=== PATIENT | female | born 1990 | race African-American/Black ===

== ENCOUNTER 2016-12-27 16:24 | Emergency (ER) | payer SELFPAY ==
[2016-12-27 17:00] LABS: #Lymphocytes 0.6 thou/uL (1.20-3.40); #Monocytes 0.2 thou/uL (0.11-0.59); #Neutrophils 10.4 thou/uL (1.40-6.50); %Lymphocytes 5.1 % (21.0-51.0); %Monocytes 1.5 % (0.0-10.0); Hematocrit 27.9 % (36.0-47.0); Mean Platelet Volume 7.3 fL (7.4-10.4); Red Blood Cell (RBC) Count 3.62 mill/uL (4.20-5.40); White Blood Cell (WBC) Count 11.1 thou/uL (4.8-10.8)
[2016-12-27] MEDS ORDERED: Ondansetron HCl/PF 4 MG/2 ML Vial ONE (17:12)
[2016-12-27 17:25] LABS: ALT (SGPT) 7 U/L (8-55); AST (SGOT) 18 U/L (5-34); Alkaline Phosphatase 60 U/L (40-150); Anion Gap 19 mmol/L (10-20); BUN (Urea Nitrogen) 7 mg/dL (7.0-18.7); Bilirubin, Total 0.5 mg/dL (0.2-1.2); Calc. Creatinine Clearance 0 mL/min (70-130); Calcium 10.1 mg/dL (7.8-10.44); Carbon Dioxide 17 mmol/L (22-29); Chloride 104 mmol/L (98-107); Estimated GFR-MDRD Greater than 90; Globulin 4.2 g/dL (2.4-3.5); Lipase 8 U/L (8-78); Protein, Total 9.3 g/dL (6.0-8.3)
[2016-12-27] MEDS ORDERED: Mag-Al 1200 mg/1200 mg/30 ML UDCUP ONE (18:05)
[2016-12-27] MEDS ORDERED: Lidocaine Viscous Sol 2% 15 ml UD Cup ONE (18:05)
== END 2016-12-27 19:40 | disposition home or self-care (01) ==
LOC: ERS 16:24
DX: K52.9 Noninfective gastroenteritis and colitis, unspecified (principal); F41.9 Anxiety disorder, unspecified; F31.9 Bipolar disorder, unspecified; F17.210 Nicotine dependence, cigarettes, uncomplicated
CPT/HCPCS: 80053; 83690; 84702; 85025; 96361; 96374; 99406; J2405

== ENCOUNTER 2019-03-07 16:54 | Observation (INO) | payer SELFPAY ==
[2019-03-07] MEDS ORDERED: Guaifenesin DM 100-10/5 ML UDCUP PO PRN (19:17)
[2019-03-07] MEDS ORDERED: Ondansetron ODT 4 MG TAB PO PRN (19:17)
[2019-03-07] MEDS ORDERED: Ondansetron PF 4 MG/2 ML Vial IVP PRN (19:17)
[2019-03-07] MEDS ORDERED: Acetaminophen 650 MG Suppository PR PRN (19:17)
[2019-03-07] MEDS ORDERED: Senokot S 8.6-50 MG TAB PO PRN (19:17)
[2019-03-07 19:51] VITALS: BMI 18.3
[2019-03-07 20:03] LABS: Hemoglobin 6.1 g/dL (12.0-16.0)
--- NOTE | 2019-03-07 20:23 | HP ---
PRIMARY CARE PHYSICIAN: Monica Moore. CHIEF COMPLAINT: Headache and weakness. HISTORY OF PRESENT ILLNESS: This is a 28-year-old female with a history of heavy periods since she was a teenager, who has been told she had some anemia in the past in the emergency room, but never had it worked up. She reports this last 2 to 3 months. She has had increasing weakness and shortness of breath with standing up and trying to walk around. She denies any chest pain or other symptoms. She does have monthly periods, and usually, she has bleed for about 7 days. During heavy parts of her period, she will change a large pad every hour. The patient also reports that for some time now, she has been craving ice. She has never been , does not take any control pills. The patient presented to the [facility]. There, she was noted to have a hemoglobin of 4.4. She had iron studies drawn, and then was typed and crossed and had 1 unit of blood hung, and then she was transferred over here for admission. She also reported some headache when she first got into the emergency room. This behind her right eye. It is a sharp pain and comes for some time and will go away, but that is resolved currently without any specific medications. PAST MEDICAL HISTORY: None. PAST SURGICAL HISTORY: None. PAST PSYCHIATRIC HISTORY: Positive for anxiety, depression, and bipolar disorder. SOCIAL HISTORY: No alcohol use. She has a history of abusing marijuana and smoking cigarettes daily, one pack daily. She is single. Her mother is present in the room. PAST FAMILY HISTORY: Mother and her sister both have significant menorrhagia problems and her mom had to have emergency hysterectomy due to bleeding. ALLERGIES: Hydrocodone MEDICATIONS: None REVIEW OF SYSTEMS: CONSTITUTIONAL: No fevers. No chills. EYES: No double vision or blurred vision. ENT: No congestion drainage or sore throat. CARDIOVASCULAR: No chest pain. No palpitations or racing heart. PULMONARY: See HPI. She does not currently have a cough. GASTROINTESTINAL: No abdominal pain. She does get nausea and vomiting with her. This is a normal thing. No nausea or vomiting currently. No diarrhea or constipation. No blood in her stool. GENITOURINARY: No dysuria or hematuria. She is just now getting off her period. Still bleeding just a little bit, but not significantly right now. MUSCULOSKELETAL: No muscle aches or joint pain. SKIN: No rashes or lesions she has noted. NEUROLOGIC: No current numbness, tingling, or focal weakness. She does get tingling and numbness in her hands and feet though on occasion. PHYSICAL EXAMINATION: VITAL SIGNS: Blood pressure 124/69, pulse 85, it was originally 107 on original presentation to the [facility], respirations 20, temperature 98.8, O2 saturation 100% on room air. GENERAL: This is a well-developed, well-nourished female, in no acute distress, but with some mild pallor to her skin. HEENT: Pupils are equal, round, and reactive to light. Conjunctivae are pale. Oropharynx with clear without lesions, erythema, or exudate. NECK: Supple. No lymphadenopathy. No thyroid nodules or enlargement. HEART: Regular rate and rhythm. No murmurs, rubs, or gallops. LUNGS: Clear to auscultation bilaterally. No wheezes, crackles, or rhonchi. ABDOMEN: Soft, nontender to palpation. Normoactive bowel sounds. No hepatosplenomegaly or other masses. EXTREMITIES: No clubbing, cyanosis, or edema. SKIN: No rashes or other lesions noted. She does have extensive tattoos across her body. NEUROLOGIC: Intact strength and sensation in all extremities. No facial droop. PSYCHIATRIC: Alert and oriented x3. Normal mood and affect. LABORATORY DATA: Labs reviewed from the [facility] show a white blood cell count of 4.5, hemoglobin of 4.1, hematocrit 14.7, MCV of 73, MCHC of 28, RDW of 18.5, platelet count was increased at 483. Her complete metabolic panel was grossly within normal limits. No elevations of her liver function tests. Troponin was negative. Glucose was normal. Blood type was A positive. Urinalysis did show some leukocyte esterase and lmp-fudcobsn-tr-count red blood cells, though she is on her period. 2+ bacteria, lots of squamous epithelial cells, so it does not look like a clean-catch. Chest x-ray, I did review the report from the [facility]. It shows no evidence of acute cardiopulmonary disease. ASSESSMENT: 1. Severe likely iron deficiency anemia. Iron studies were drawn in my request in [facility] prior to transfusion. We will obtain the results of these studies. The patient has had received 1 unit of packed red blood cells. We will check a hemoglobin and hematocrit now. She will likely need transfusion of another couple of units, so we will type and cross 2 units for her right now. She does not have any significant active bleeding, just a small amount at the end of her period, and her vital signs are stable, so I decided that she will not need to stay longer in the hospital. We likely can transfuse her overnight and possibly discharge her tomorrow if she is hemodynamically stable. 2. Menorrhagia. The patient has a significant history of menorrhagia. Has never been worked up. Dr. Washburn was called from [facility]. He said he would consult when she got here. I will go ahead and write for the consult here as well. The patient may benefit from starting oral contraceptive pills. 3. Gastrointestinal prophylaxis. The patient is on Pepcid twice a day. 4. Deep venous thrombosis prophylaxis. Put patient on sequential compression devices while she is in bed and encourage ambulation. No anticoagulants for right now though due to her severe anemia and history of menorrhagia. CODE STATUS: The patient is a full code. Should she be incapacitated, her mother would be her medical decision maker. Her name is Mariluz Ozuna. Job ID: [id number] MTDD
[2019-03-07] MEDS: Famotidine 20 MG TAB PO SCH (21:22)
[2019-03-07] MEDS: Acetaminophen 325 MG TAB PO PRN (21:22)
[2019-03-08] MEDS ORDERED: Ketorolac Tromethamine 30 MG/ML VIAL IVP SCH (02:00)
[2019-03-08 05:17] LABS: #Eosinphils 0.2 thou/uL (0.0-0.7); #Lymphocytes 1.8 thou/uL (1.20-3.40); #Monocytes 0.7 thou/uL (0.11-0.59); #Neutrophils 4.2 thou/uL (1.40-6.50); %Basophils 0.6 % (0.0-1.0); %Eosinophils 3.5 % (0.0-10.0); %Lymphocytes 25.4 % (21.0-51.0); %Monocytes 9.4 % (0.0-10.0); %Neutrophils 61.1 % (42.0-75.0); Hemoglobin 8.4 g/dL (12.0-16.0); Mean Corpuscular HGB CONC 32.1 g/dL (32.0-36.0); Mean Corpuscular Hemoglobin 26.6 pg (27.0-31.0); Mean Corpuscular Volume 82.9 fL (78.0-98.0); Platelet Count 349 thou/uL (130-400); Red Blood Cell (RBC) Count 3.17 mill/uL (4.20-5.40); White Blood Cell (WBC) Count 6.9 thou/uL (4.8-10.8)
[2019-03-08 05:34] LABS: Anion Gap 9 mmol/L (10-20); BUN (Urea Nitrogen) 10 mg/dL (7.0-18.7); Calc. Creatinine Clearance 83 mL/min (70-130); Calcium 8.1 mg/dL (7.8-10.44); Carbon Dioxide 23 mmol/L (22-29); Chloride 109 mmol/L (98-107); Estimated GFR-MDRD Greater than 90; Glucose 116 mg/dL (70-105); Potassium 4.1 mmol/L (3.5-5.1); Sodium 137 mmol/L (136-145)
--- NOTE | 2019-03-08 07:22 | CON ---
DATE OF CONSULTATION: 03/08/2019 CONSULTING PHYSICIAN: Chan Washburn MD from [facility]. REASON FOR CONSULTATION: Menorrhagia with anemia, requiring transfusion. HISTORY OF PRESENT ILLNESS: Ms. Fuentes is a 28-year-old 0 with a long history of menorrhagia. She reports changing pads, tampons q.1 hour for 3 to 5 days per month. She states her periods have always been heavy. At this time, she presented to the emergency room with near syncopal episode, was found to have a hematocrit of 19%. She was seen in [place] and despite the real absence of need for inpatient gynecologic care, was transferred to [facility] in [place], because of the presence of OB-RADIOLOGIC TECHNOLOGY TEACHER. She was admitted by Medicine and received 3 units of PRBCs. Post transfusion, hematocrit is 26%. She states symptomatically, she feels much better. OUTLET MANAGER HISTORY: Denies history of STDs, abnormal Pap smear. Of note, the patient has a strong family history of menorrhagia. The patient is not on any contraception at this time. PAST MEDICAL HISTORY: Denies. PAST SURGICAL HISTORY: Denies. ALLERGIES: DENIES. MEDICATIONS: None. SOCIAL HISTORY: Denies tobacco, alcohol, or IV drug use. FAMILY HISTORY: Noncontributory. REVIEW OF SYSTEMS: Noncontributory. PHYSICAL EXAMINATION: GENERAL: Black female, extensive body, resting comfortably in the bed, pleasant, no acute distress. VITAL SIGNS: Temperature 98.0, pulse 73, respirations 17, and blood pressure 107/66. HEENT: Within normal limits. LUNGS: Clear to auscultation bilaterally. HEART: Regular rate and rhythm. ABDOMEN: Soft, nontender. No rebound or guarding. RADIOLOGIC TECHNOLOGY TEACHER: Vulva without lesions. Moderate menses. Pelvic exam deferred. EXTREMITIES: No clubbing, cyanosis, or edema. LABORATORY: Post transfusion, hematocrit was noted, platelet count within normal limits. [facility] iron studies revealed iron of 9; lower limits of normal 35; TIBC 480; upper limits of normal, 445. Iron saturation 1.9%; ferritin 4, lower limits of normal 6. Of note, the patient had mild microcytic indices on her initial CBC. RADIOLOGIC TECHNOLOGY TEACHER ultrasound ordered on 03/07, pending at this time. Study has not been performed. IMPRESSION: Secondary versus mild primary menorrhagia leading to anemia. This is the patient's first blood transfusion for menorrhagia and anemia. The patient is 0. PLAN: 1. A Provera 10 mg b.i.d. during heavy menses. The patient will need prescription for this upon discharge from hospital. 2. Consideration if the patient has insurance for Lysteda 1300 mg p.o. t.i.d. for 5 days with heavy menses. The patient is currently uninsured and financial impact as I stated would likely be excessive. 3. Followup ultrasound results. If indicated by ultrasound, we would recommend endometrial biopsy in the outpatient setting. 4. IV Venofer 500 mg x2 during hospitalization for iron deficiency. 5. Consideration for long-term outpatient therapy. As the patient does not desire at this time, therapy with progesterone releasing IUD versus Depo-Provera would likely be most satisfactory in the [facility]. 6. Consideration in the normal volemic non-post transfusion state of further evaluation for possible von Willebrand's or other coagulation deficits as the patient gives history that is mildly suggestive for possible primary menorrhagia that has not been fully evaluated. 7. OB hospitalist will follow up on the ultrasound results in hospital. The patient will follow up at [facility] [place] as an outpatient. Again, recommend discharge with Provera 10 mg to take b.i.d. on heavy days for 5 days q.cycle. Job ID: [id number]
--- NOTE | 2019-03-08 08:33 | ULT ---
Ultrasound of the pelvis: 03/08/2019 COMPARISON:None available HISTORY:Anemia, menorrhagia TECHNIQUE: Multiplanar grayscale sonographic imaging of the pelvis obtained with transabdominal imagi ng. The patient refused endovaginal examination.. The left ovary is assessed with Doppler interrogation including color flow and spectral analysis. FINDINGS: The uterus [id number] x 6.6 x 7.0 cm. The region of the endometrium is markedly irregular, with heterogeneous echotexture involving the melly tral aspect of the uterus and region of the endometrium. The endometrium cannot be accurately measured on this exam. It may be significantly thickened and/or distorted. Heterogeneity of the centr al aspect of the uterus may signify submucosal fibroids. This is difficult to fully assess without endovaginal imaging. The right ovary could not be visualized on this examination. The left ovary measures3.8 x 2.2 x 2.2 c m and demonstrates normal blood flow without evidence for mass. No significant free fluid is seen within the pelvis IMPRESSION:Distorted and/or thickened heterogeneous endometrial on with probable uterine fibroid dise ase, not optimally assessed without endovaginal imaging. Endovaginal imaging may be helpful for further assessment. Alternatively, pelvic MRI could be beneficial in better evaluating the uterine ar chitecture and potential underlying fibroid disease.
[2019-03-08] MEDS ORDERED: Iron Sucrose Complex 500 MG in Sodium Chloride 0.9% 250 ML 250 ML IVPB SCH (09:00)
[2019-03-08] MEDS ORDERED: medroxyPROGESTERone Acetate 5 MG TAB PO SCH (09:00)
[2019-03-08] MEDS: Famotidine 20 MG TAB PO SCH (09:11)
[2019-03-08 11:35] VITALS: BP 131/75; TEMP 98.2
[2019-03-08] MEDS: Acetaminophen 325 MG TAB PO PRN (12:58)
--- NOTE | 2019-03-09 02:12 | DIS ---
DATE OF ADMISSION: 03/07/2019 DATE OF DISCHARGE: 03/08/2019 DISCHARGE DIAGNOSES: 1. Severe symptomatic anemia, secondary to #2. 2. Menorrhagia, multifactorial. 3. Acute blood loss anemia status post 2 units of packed red blood cells. 4. Severe iron deficiency anemia. CONSULTATIONS: Dr. Chan Washburn with REGIONAL ACCOUNT EXECUTIVE Service. PERTINENT LABORATORY AND X-RAY FINDINGS: Basic metabolic profile within normal limits. CBC showed a hemoglobin ranging between 6.1 to 8.4, MCV 83. IMAGING: Pelvic ultrasound dated 03/08/2019 showed thickened and distorted heterogeneous endometrium with probable uterine fibroid disease. HOSPITAL COURSE: The patient was observed after initially presenting with headache, generalized weakness, and symptomatic severe anemia. The patient was initially evaluated at the [facility] with initial hemoglobin of 4.4. However, patient received 1 unit of packed red blood cells and was transferred to [facility] for [facility] evaluation. The patient received an additional 2 units of packed red blood cells during her hospital course as well as IV iron infusion. Iron studies from [facility] showed an iron level of 9 with TIBC of 480, iron saturation of 1.9%, and a ferritin level of 4. HOSPITAL COURSE: The patient was evaluated by the REGIONAL ACCOUNT EXECUTIVE service, undergoing pelvic ultrasound showing probable uterine fibroid disease with recommendations to initiate Provera 10 mg b.i.d. with the heaviest menstrual days of each cycle. The patient may need additional evaluation for bleeding disorder, as well as outpatient YARD COUPLER services. The patient tolerated 3 units of packed red blood cells as well as IV iron infusion as well as oral intake without complication. I have examined the patient at the time of discharge and discussed followup instructions. The patient verbalized understanding and agreement ready for discharge on 03/08/2019. DISCHARGE MEDICATIONS: 1. Ferrous sulfate 325 mg p.o. b.i.d. 2. Provera 10 mg p.o. b.i.d. during heaviest menses days of each cycle. FOLLOWUP: The patient may follow up with [facility] [place] for evaluation and to call their office for appointment time and date. CONDITION ON DISCHARGE: Stable. ACTIVITY: Ad-effie. DIET: Regular. CODE STATUS: Full. DISPOSITION: To home, 03/08/2019. Job ID: [id number]
== END 2019-03-08 13:54 | disposition home or self-care (01) ==
LOC: 2SW 18:30
PROVIDERS: ADMIT Emergency Medicine; ATTEND Emergency Medicine
DX: D62 Acute posthemorrhagic anemia (principal); N92.0 Excessive and frequent menstruation with regular cycle; F41.9 Anxiety disorder, unspecified; F31.9 Bipolar disorder, unspecified; Z87.891 Personal history of nicotine dependence; Z88.5 Allergy status to narcotic agent
CPT/HCPCS: 36415; 36430; 76856; 80048; 85014; 85018; 85025; 86850; 86900; 86901; 93976; 96365; 96366; 96375; G0378; J1756; J1885; J7050; P9016

== ENCOUNTER 2019-04-04 12:09 | Emergency (ER) | payer SELFPAY ==
[2019-04-04 13:19] LABS: #Basophils 0.1 thou/uL (0.0-0.2); #Eosinphils 0.2 thou/uL (0.0-0.7); #Lymphocytes 1.5 thou/uL (1.20-3.40); #Monocytes 0.6 thou/uL (0.11-0.59); #Neutrophils 6.7 thou/uL (1.40-6.50); %Basophils 0.8 % (0.0-1.0); %Eosinophils 2.1 % (0.0-10.0); %Lymphocytes 16.7 % (21.0-51.0); %Monocytes 6.9 % (0.0-10.0); %Neutrophils 73.5 % (42.0-75.0); Hemoglobin 9.1 g/dL (12.0-16.0); Mean Corpuscular HGB CONC 32.8 g/dL (32.0-36.0); Mean Corpuscular Hemoglobin 29.8 pg (27.0-31.0); Mean Corpuscular Volume 90.7 fL (78.0-98.0); Mean Platelet Volume 7.8 fL (7.4-10.4); Platelet Count 265 thou/uL (130-400); RBC Distribution Width 20.1 % (11.5-14.5); Red Blood Cell (RBC) Count 3.05 mill/uL (4.20-5.40); White Blood Cell (WBC) Count 9.1 thou/uL (4.8-10.8)
[2019-04-04 13:40] LABS: BHCG - Serum Negative (NEGATIVE); Pregs Control Background? CLEAR/WHITE (CLR/WHITE); Pregs Control Bar Appear? YES (CONTROL BAR)
[2019-04-04 13:42] LABS: Anisocytosis SLIGHT = 6-15 cells (100X) (0-5/hpf); MDiff Complete? YES; Ovalocytes SLIGHT = 2-5 cells (100X) (0-1/hpf); Platelet Morphology Comment Appears Adequate; Polychromasia SLIGHT = 2-3 cells (100X) (0-2/hpf); Target Cells SLIGHT = 2-5 cells (100X) (0-1/hpf)
[2019-04-04 13:45] LABS: ALT (SGPT) 7 U/L (8-55); AST (SGOT) 12 U/L (5-34); Albumin 3.9 g/dL (3.5-5.0); Alkaline Phosphatase 42 U/L (40-110); Anion Gap 11 mmol/L (10-20); BUN (Urea Nitrogen) 8 mg/dL (7.0-18.7); Bilirubin, Total 0.5 mg/dL (0.2-1.2); Calc. Creatinine Clearance 0 mL/min (70-130); Calcium 8.4 mg/dL (7.8-10.44); Carbon Dioxide 23 mmol/L (22-29); Chloride 106 mmol/L (98-107); Estimated GFR-MDRD Greater than 90; Globulin 2.5 g/dL (2.4-3.5); Glucose 88 mg/dL (70-105); Potassium 3.6 mmol/L (3.5-5.1); Protein, Total 6.4 g/dL (6.0-8.3); Sodium 136 mmol/L (136-145)
--- NOTE | 2019-04-04 13:47 | ULT ---
Exam: Transabdominal pelvic ultrasound HISTORY: Vaginal bleeding COMPARISON: 03/08/2019 TECHNIQUE: Transabdominal imaging of the pelvis is performed. Ovaries are interrogated with grayscale , color flow, Doppler imaging and spectral waveform analysis. Patient refused endovaginal imaging. FINDINGS: Uterus is identified, measuring 11.8 x 6.8 x 6.0 cm. There are at least 2 solid echotexture masses in the myometrium, measuring 4.1 x 2.6 x 3.0 cm and 6.1 x 3.6 x 3.8 cm. Suboptimal evaluation the endometrium. Right ovary has a normal echotexture measuring 1.9 x 1.8 x 3.3 cm. Left ovary has a normal echotexture measuring 3.2 x 2.2 x 2.5 cm Trace amount of fluid in the cul-de-sac Ovarian Doppler: Vascular flow to both ovaries IMPRESSION: 1. Limited evaluation of the endometrium. Patient refused transvaginal imaging. 2. 2 separate solid echotexture masses in the myometrium, likely representing uterine leiomyomas. 3. Better interrogation with pelvic MRI is recommended to assess presumed leiomyomas as well as asses s the endometrium. Note, previous report suggested a heterogeneous endometrium.
[2019-04-04 14:15] LABS: Bilirubin Negative (Negative); Blood, Urine Negative (Negative); Clarity Clear (Clear); Glucose, Urine (Dipstick) Normal (Negative); Leukocyte Negative Leu/uL (Negative); Nitrite Negative (Negative); Protein, Urine (Dipstick) Negative (Neg-Trace); Urobilinogen Normal mg/dL (Less than 2)
== END 2019-04-04 15:20 | disposition home or self-care (01) ==
LOC: ERS 12:09
DX: D25.9 Leiomyoma of uterus, unspecified (principal); I10 Essential (primary) hypertension; F41.9 Anxiety disorder, unspecified; F31.9 Bipolar disorder, unspecified
CPT/HCPCS: 36415; 51701; 76856; 80053; 81003; 84703; 85025; 86850; 86900; 86901; 93976; A4353

== ENCOUNTER 2019-11-30 15:16 | Observation (INO) | payer OTHER, SELFPAY ==
[2019-11-30 16:29] LABS: #Lymphocytes 1.4 thou/uL (1.20-3.40); #Monocytes 0.3 thou/uL (0.11-0.59); %Basophils 0.7 % (0.0-1.0); %Eosinophils 0.3 % (0.0-10.0); %Monocytes 5.1 % (0.0-10.0); %Neutrophils 73.9 % (42.0-75.0); Hemoglobin 5.5 g/dL (12.0-16.0); Mean Corpuscular HGB CONC 32.2 g/dL (32.0-36.0); Mean Corpuscular Hemoglobin 25.7 pg (27.0-31.0); Mean Corpuscular Volume 79.7 fL (78.0-98.0); Mean Platelet Volume 7.7 fL (7.4-10.4); Platelet Count 486 thou/uL (130-400); RBC Distribution Width 19.4 % (11.5-14.5); Red Blood Cell (RBC) Count 2.16 mill/uL (4.20-5.40); White Blood Cell (WBC) Count 6.8 thou/uL (4.8-10.8)
[2019-11-30 16:43] LABS: Anisocytosis SLIGHT = 6-15 cells (100X) (0-5/hpf); Hypochromia SLIGHT = 6-15 cells (100X) (0-5/hpf); MDiff Complete? YES; Platelet Morphology Comment Appears Increased; Polychromasia SLIGHT = 2-3 cells (100X) (0-2/hpf)
[2019-11-30] MEDS ORDERED: Ondansetron PF 4 MG/2 ML Vial ONE (18:12)
[2019-11-30] MEDS ORDERED: Morphine 4 MG/ML VIAL ONE (18:12)
[2019-11-30 18:52] LABS: ALT (SGPT) Less than 7 U/L (8-55); AST (SGOT) 16 U/L (5-34); Albumin 3.9 g/dL (3.5-5.0); Alkaline Phosphatase 29 U/L (40-110); Anion Gap 12 mmol/L (10-20); BUN (Urea Nitrogen) 12 mg/dL (7.0-18.7); Bilirubin, Total 0.3 mg/dL (0.2-1.2); Calc. Creatinine Clearance 0 mL/min (70-130); Calcium 8.7 mg/dL (7.8-10.44); Carbon Dioxide 22 mmol/L (22-29); Chloride 104 mmol/L (98-107); Estimated GFR-MDRD Greater than 90; Globulin 3.2 g/dL (2.4-3.5); Glucose 77 mg/dL (70-105); Potassium 3.6 mmol/L (3.5-5.1); Protein, Total 7.1 g/dL (6.0-8.3); Sodium 134 mmol/L (136-145)
[2019-11-30 19:14] LABS: INR-International Normal Ratio 1.1; Prothrombin Time 13.9 sec (12.0-14.7)
[2019-11-30 19:15] LABS: PTT 27.9 sec (22.9-36.1)
--- NOTE | 2019-11-30 19:41 | ULT ---
TRANSABDOMINAL PELVIC ULTRASOUND WITH KAUR SCALE, COLOR FLOW AND SPECTRAL DOPPLER IMAGIN11/30/19 HISTORY: Vaginal bleeding. FINDINGS: The uterus measures 11.1 x 7.8 x 8.3 cm. Uterine fibroids are noted as on the previous exam of 0. The largest measuring 3.4 x 3.1 x 3.9 cm and 5.1 x 5.8 x 4.8 cm. The endometrium is not visualized . The right ovary is not visualized due to overlying bowel gas. The left ovary measures 2.7 x 1.9 x 1 .5 cm. There is flow to the left ovary. No free fluid is seen in the cul-de-sac. IMPRESSION: Limited exam. Uterine fibroids. POS: MZA
[2019-11-30 19:44] LABS: BHCG - Serum Negative (NEGATIVE); Pregs Control Background? CLEAR/WHITE (CLR/WHITE); Pregs Control Bar Appear? YES (CONTROL BAR)
--- NOTE | 2019-11-30 21:07 | PDOC.FPRHP ---
- History of Present Illness Chief Complaint: vaginal bleeding History of Present Illness: Pt is a 29F presenting for constant vaginal bleeding since March, without improvement. She has a hx of significant bleeding requiring tx with transfusion and d/t uterine fibroid(s). She is soaking through nighttime pads q2h with multiple blood clots. She would like a hysterectomy but is uninsured, so she was attempting medical management with OCPs. She has attempted using NSAIDs and has been on OCPs since 09/2019 without improvement. She just ran out of OCPs last night. 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 Her H/H on admission was 5.5/17.2, so they started transfusing 1u of pRBCs. ED Course: Morphine 4mg, Zofran 4mg, 1u pRBCs - Allergies/Adverse Reactions Allergies Allergy/AdvReac Type Severity Reaction Status Date / Time hydrocodone Allergy Verified 10/12/19 23:40 - Home Medications Medication Instructions Recorded Confirmed Type Ferrous Sulfate 325 mg PO BID #60 tablet 03/08/19 10/12/19 Rx Norgestimate-Ethinyl Estradiol 1 tablet PO DAILY #3 pack 10/13/19 Rx [Sprintec 28 Day] - History PMHx: Denies PSHx: Denies Social: Smokes ~5cigs/d, denies EtOH and drug use - Review of Systems General: reports: fatigue. denies: fever/chills Eyes: denies: vision changes ENT: denies: nasal congestion, rhinorrhea Respiratory: reports: shortness of breath, exercise intolerance. denies: cough, congestion Cardiovascular: reports: palpitation. denies: chest pain, edema Gastrointestinal: reports: nausea. denies: diarrhea, abdominal pain Genitourinary: denies: dysuria, polyuria Skin: denies: rashes Musculoskeletal: denies: swelling Neurological: reports: weakness. denies: numbness, syncope - Vital signs BP: 129/68 HR: 88 RR: 16 Tmax: 98.6F Pox: 100% on RA Wt: 47.6kg - Physical Exam Constitutional: NAD, awake, alert and oriented, well developed HEENT: normocephalic and atraumatic, grossly normal vision, grossly normal hearing Neck: supple, FROM Chest: no lesions Heart: normal S1/S2, no murmurs/rubs/gallops, pulses present, no edema -Heart: Irregular rhythm Lungs: CTAB, no respiratory distress, good air movement, no wheezing, no retractions Abdomen: soft, bowel sounds present, no masses/distention -Abdomen: Tender to palpation in lower abdomen Musculoskeletal: normal structure, normal tone Neurological: no focal deficit Skin: no rash/lesions Heme/Lymphatic: no purpura, no petechia Psychiatric: normal mood and affect, good judgment and insight, intact recent and remote memory FMR H&P: Results - Labs Result Diagrams: 12/01/19 06:27 12/01/19 06:27 Lab results: WBC 6.8 thou/uL (4.8-10.8) 11/30/19 16:14 Hgb 5.5 g/dL (12.0-16.0) L* 11/30/19 16:14 Hct 17.2 % (36.0-47.0) L 11/30/19 16:14 MCV 79.7 fL (78.0-98.0) 11/30/19 16:14 Plt Count 486 thou/uL (130-400) H 11/30/19 16:14 Neutrophils % 73.9 % (42.0-75.0) 11/30/19 16:14 Sodium 134 mmol/L (136-145) L 11/30/19 18:12 Potassium 3.6 mmol/L (3.5-5.1) 11/30/19 18:12 Chloride 104 mmol/L (98-107) 11/30/19 18:12 Carbon Dioxide 22 mmol/L (22-29) 11/30/19 18:12 BUN 12 mg/dL (7.0-18.7) 11/30/19 18:12 Creatinine 0.71 mg/dL (0.6-1.1) 11/30/19 18:12 Glucose 77 mg/dL (70-105) 11/30/19 18:12 Calcium 8.7 mg/dL (7.8-10.44) 11/30/19 18:12 Total Bilirubin 0.3 mg/dL (0.2-1.2) 11/30/19 18:12 AST 16 U/L (5-34) 11/30/19 18:12 ALT Less than 7 U/L (8-55) L 11/30/19 18:12 Alkaline Phosphatase 29 U/L (40-110) L 11/30/19 18:12 Serum Total Protein 7.1 g/dL (6.0-8.3) 11/30/19 18:12 Albumin 3.9 g/dL (3.5-5.0) 11/30/19 18:12 FMR H&P: A/P - Plan Acute blood loss anemia - Hx of fibroid requiring transfusions and TXA tx in the past - Has failed NSAID and OCP management - Desires hysterectomy but uninsured - Transfusing 2u pRBCs H/H 4hr post-transfusions - Will administer TXA Consider OP TXA tx Tobacco use - ~5cigs/day - Complicates OCP and TXA use - Vest Tailor on smoking cessation - Consider nicotine patch Dispo: Inpt teleprinter service, LOS >24h DVT Ppx: SCDs GI Ppx: N/A IVF: LR 125mL/h PCP: TAMP Code: Full FMR H&P: Upper Level - Plan Date/Time: 11/30/192055 I, Gaye Bonilla MD, have evaluated this patient and agree with findings/plan as outlined by internship coordinator resident. Pertinent changes/additions are listed here. HPI: 29 yo F presents for heavy vaginal bleeding. She has a history of fibroids and menorrhagia. Reports she has been bleeding since March. She presented about 1 month ago for the same issue, was given TXA and 3 U PRBC, and sent home on oral control. She reports het oral control did not help, and she ran out of medications last night. She now reports that she has had continued heavy vaginal bleeding, with painful cramps she rates 8/10, passing clots, and soaking a large night time maxi pad every 2 hours. She came to the ED for generalized weakness, SOB with exertion, and fatigue that has been worsening over the last couple days. Denies fever/chills, cough. Patient reports she would like hyster ectomy, but she is uninsured and was told to try medical management first. ED: Hgb 5.5. Transfused 1 u PRBCs. UPT neg. Pelvic US showed large uterine fibroids. Given morphine and Zofran. PEx: Vitals: BP 125/70, P 88, R 16, 100% on RA, T 98.9 General: black female, tired appearing Lungs: BCTA Cardiac: regularly irregular rhythm, no murmurs Ext: no swelling, pulses 2+ in all extremities A/P: Acute Blood loss anemia 2/2 Menorrhagia and Fibroids -1 u PRBCs being transfused, second unit ordered -TXA given -4 hr H/H -Continue IVF LR @ 125 -Consider starting TXA outpatient during periods, vs pursuing hysterectomy if funding can be found -Pain control Ibuprofen and tylenol Na 134 -Repeat AM labs Tobacco abuse -Vest Tailor cessation DVT ppx: SCDs Diet: reg Gi ppx: none IV: LR @ 125 PCP: [facility] Dispo: Admit to medical obs, transfuse 2 units, monitor bleeding with hgb and vitals. Addendum - Attending - Attending Attestation Date/Time: 11/30/19 [id number] I personally evaluated the patient and discussed the management with Dr. Leroy Ruano I agree with the History, Examination, Assessment and Plan documented above with any addition or exceptions noted below - 29 yo F presents for heavy vaginal bleeding. She has a history of fibroids and menorrhagia. Reports she has been bleeding since March with hospitalization then for the same issue, was given TXA and 3 U PRBC, and sent home on oral control. She reports that the oral control did not help, and she ran out of medications last night. She now reports that she has had continued heavy vaginal bleeding, with painful cramps she rates 8/10, passing clots, and soaking a large night time maxi pad every 2 hours. She came to the ED for generalized weakness, SOB with exertion, and fatigue that has been worsening over the last couple days. Denies fever/chills, cough. PMH/PSH/Meds/SH reviewed and agree with resident's documentation. Afebrile T98.8 P89 BP 143/88 RR20 Exam repeated by me and agree with resident's findings. Labs: WBC=6.5, H/H=5.5/17.2, Qto=199, Ol=322, K=3.6, Yd=881, CO@=22, BUN/Cr=12/0.71, Pelvic USG= multiple fibroids. A/P: 1) Symptomatic anemia secondary to AUB from fibroids - Admit to medical - transfuse 2u pRBCs and recheck H/H. 2) AUB- will give dose of TXA and consider premarin IV. Case management to assist with possible options for insurance/medication assistance.
[2019-11-30] MEDS ORDERED: Acetaminophen 500 MG TAB PO PRN (22:26)
[2019-11-30] MEDS ORDERED: Tranexamic Acid 1,000 MG in Sodium Chloride 0.9% 100 ML IVPB SCH (23:00)
[2019-12-01] MEDS: Lactated Ringer's 1,000 ML IV SCH ×3 (03:07→15:37)
[2019-12-01] MEDS: Ibuprofen 800 MG TAB PO SCH ×3 (06:13→21:18)
[2019-12-01 06:58] LABS: #Lymphocytes 1.2 thou/uL (1.20-3.40); #Monocytes 0.7 thou/uL (0.11-0.59); %Basophils 0.4 % (0.0-1.0); %Eosinophils 0.2 % (0.0-10.0); %Lymphocytes 11.1 % (21.0-51.0); %Monocytes 6.2 % (0.0-10.0); %Neutrophils 82.1 % (42.0-75.0); Hemoglobin 6.9 g/dL (12.0-16.0); Mean Corpuscular Hemoglobin 27.8 pg (27.0-31.0); Mean Corpuscular Volume 84.2 fL (78.0-98.0); Mean Platelet Volume 7.6 fL (7.4-10.4); Platelet Count 357 thou/uL (130-400); RBC Distribution Width 16.4 % (11.5-14.5); Red Blood Cell (RBC) Count 2.47 mill/uL (4.20-5.40)
[2019-12-01 07:21] LABS: Anion Gap 10 mmol/L (10-20); BUN (Urea Nitrogen) 9 mg/dL (7.0-18.7); Calc. Creatinine Clearance 97 mL/min (70-130); Calcium 7.8 mg/dL (7.8-10.44); Carbon Dioxide 23 mmol/L (22-29); Chloride 107 mmol/L (98-107); Estimated GFR-MDRD Greater than 90; Glucose 100 mg/dL (70-105); Potassium 3.9 mmol/L (3.5-5.1); Sodium 136 mmol/L (136-145)
[2019-12-01] MEDS ORDERED: FLU VACC QS2020-21(6MOS UP)/PF 60 MCG/0.5 ML SYRINGE IM ONE (09:00)
--- NOTE | 2019-12-01 09:26 | PDOC.FM ---
- Subjective Subjective: Patient is resting comfortably in bed. Denies shortness of breath, chest pain, light-headed, fever or chills. States that she feels much improved. She states before midnight last night she was having to change pads every 20-30 minutes, however she has not had to change a pad since midnight since receiving TXA. She notes she has been taking OCPs with no control of bleeding, but has not been taking TXA at home. - Objective Vital Signs & Weight: Vital Signs (12 hours) Temp Pulse Pulse Resp BP BP Pulse Ox 12/01/19 07:53 98.7 F 92 20 115/62 100 12/01/19 03:04 98.2 F 82 16 121/85 12/01/19 00:47 98 F 74 16 117/75 100 12/01/19 00:17 98.9 F 118 H 20 159/82 H 11/30/19 21:50 98.8 F 89 20 143/88 H 100 Weight Weight 47.6 kg I&O: 11/30/19 12/01/19 12/02/19 06:59 06:59 06:59 Intake Total 0 Output Total 200 Balance -200 Result Diagrams: 12/01/19 06:27 12/01/19 06:27 Phys Exam - Physical Examination Constitutional: NAD HEENT: PERRLA, moist MMs, oral pharynx no lesions Neck: full ROM Respiratory: no wheezing, clear to auscultation bilateral Cardiovascular: RRR Gastrointestinal: soft, non-tender, positive bowel sounds Musculoskeletal: no edema Neurological: moves all 4 limbs Psychiatric: A&O x 3 Skin: no rash Dx/Plan (1) Menorrhagia Code(s): N92.0 - EXCESSIVE AND FREQUENT MENSTRUATION WITH REGULAR CYCLE Status: Acute (2) Symptomatic anemia Code(s): D64.9 - ANEMIA, UNSPECIFIED Status: Acute - Plan Plan: Acute Blood loss anemia 2/2 Menorrhagia and Fibroids -s/p 2 u pRBCs transfused overnight, TXA given, bleeding frequency reduced -4hr Hgb 6.9 -will transfuse 1 more unit pRBCs, and repeat 4hr post-transfusion H/H -Continue IVF LR @ 125 -Consider starting TXA outpatient during periods vs outpatient placement of mirena if unable to do hysterectomy -Pain control Ibuprofen and tylenol Tobacco abuse -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 Addendum - Attending - Attending Attestation Date/Time: 12/01/19 [id number] I personally evaluated the patient and discussed the management with Dr. Marley. I agree with the History, Examination, Assessment and Plan documented above with any addition or exceptions noted below. Tx third unit PRBC. Continue TXA. Will working on arranging outpatient mirena at [facility].
[2019-12-01 12:51] LABS: SARS-CoV-2 MS2 Positive; SARS-CoV-2 N Gene Negative; SARS-CoV-2 S Gene Negative; SARS-CoV-2 by NAA Not Detected (NotDetected); SARS-CoV-2 orf1ab Negative
[2019-12-01] MEDS: Tranexamic Acid 1,000 MG in Sodium Chloride 0.9% 250 ML 250 ML IVPB SCH ×3 (13:56→21:18)
[2019-12-01] MEDS: Ferrous Sulfate 325 MG TAB PO SCH (16:44)
[2019-12-02] MEDS: Lactated Ringer's 1,000 ML IV SCH ×2 (01:26→07:24)
[2019-12-02] MEDS: Ibuprofen 800 MG TAB PO SCH (05:18)
--- NOTE | 2019-12-02 06:22 | PDOC.FM ---
- Subjective Subjective: Patient is resting comfortably in bed. Reports that she has only used one pad since yesterday and only has mild bleeding. She denies symptoms of feeling lightheaded, short of breath, palpitations. - Objective MAR Reviewed: Yes Vital Signs & Weight: Vital Signs (12 hours) Temp Pulse Resp BP Pulse Ox 12/02/19 05:20 98.7 F 79 20 141/81 H 12/01/19 20:00 20 12/01/19 19:51 99.1 F 91 16 119/77 100 Weight Weight 47.6 kg Most Recent Monitor Data Heart Rate from ECG 88 I&O: 11/30/19 12/01/19 12/02/19 06:59 06:59 06:59 Intake Total 0 350 Output Total 200 Balance -200 350 Result Diagrams: 12/02/19 06:31 12/01/19 06:27 Phys Exam - Physical Examination Constitutional: NAD HEENT: PERRLA, moist MMs Respiratory: no wheezing, clear to auscultation bilateral Cardiovascular: RRR, no significant murmur Gastrointestinal: soft, non-tender, positive bowel sounds Musculoskeletal: no edema Neurological: moves all 4 limbs Psychiatric: A&O x 3 Skin: no rash Dx/Plan (1) Menorrhagia Code(s): N92.0 - EXCESSIVE AND FREQUENT MENSTRUATION WITH REGULAR CYCLE Status: Acute (2) Symptomatic anemia Code(s): D64.9 - ANEMIA, UNSPECIFIED Status: Acute - Plan Plan: Acute Blood loss anemia 2/2 Menorrhagia and Fibroids -s/p 2 u pRBCs transfused overnight 11/29- - TXA TID started, bleeding frequency reduced - 11/30 Hgb 6.9 - transfused 1 more unit pRBCs - am H/H 8.0/23.3 - Plans to start TXA outpatient treatment, TID x 5 days during periods and coordinating outpatient placement of mirena through our office -continued oral iron BID -Pain control Ibuprofen and tylenol Tobacco abuse -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 Marley. I agree with the History, Examination, Assessment and Plan documented above with any addition or exceptions noted below.
[2019-12-02 07:09] LABS: #Basophils 0.1 thou/uL (0.0-0.2); #Eosinphils 0.1 thou/uL (0.0-0.7); #Lymphocytes 1.6 thou/uL (1.20-3.40); #Monocytes 0.8 thou/uL (0.11-0.59); #Neutrophils 4.7 thou/uL (1.40-6.50); %Basophils 0.8 % (0.0-1.0); %Eosinophils 1.3 % (0.0-10.0); %Lymphocytes 21.5 % (21.0-51.0); %Monocytes 10.7 % (0.0-10.0); %Neutrophils 65.6 % (42.0-75.0); Mean Corpuscular HGB CONC 34.2 g/dL (32.0-36.0); Mean Corpuscular Hemoglobin 28.8 pg (27.0-31.0); Mean Corpuscular Volume 84.1 fL (78.0-98.0); Platelet Count 283 thou/uL (130-400); Red Blood Cell (RBC) Count 2.77 mill/uL (4.20-5.40); White Blood Cell (WBC) Count 7.2 thou/uL (4.8-10.8)
[2019-12-02 08:04] VITALS: BP 117/68; TEMP 98.8
[2019-12-02] MEDS: Ferrous Sulfate 325 MG TAB PO SCH (08:48)
[2019-12-02] MEDS: Tranexamic Acid 1,000 MG in Sodium Chloride 0.9% 250 ML 250 ML IVPB SCH (08:49)
--- NOTE | 2019-12-05 14:12 | DIS ---
DATE OF ADMISSION: 11/30/2019 DATE OF DISCHARGE: 12/02/2019 RESIDENT: Victorina Marley DO ADMITTING ATTENDING: Isaura Bolden MD DISCHARGE ATTENDING: Diaz Al MD CONSULTS: None. PROCEDURES: None. PRIMARY DIAGNOSIS: Acute blood-loss anemia secondary to menorrhagia, secondary to uterine fibroids. SECONDARY DIAGNOSIS: Tobacco abuse. DISCHARGE MEDICATIONS: 1. Ferrous sulfate 325 mg p.o. b.i.d. 2. Folic acid 0.4 mg p.o. daily for 30 days. 3. Ibuprofen 800 mg q.6 to 8 hours p.r.n. 4. Vitamin B12 1000 mcg p.o. daily for 30 days. 5. Tranexamic acid 1300 mg p.o. t.i.d., 30 tablets. DISCONTINUED MEDICATIONS: Discontinued OCPs: Norgestimate/ethinyl estradiol, Sprintec, 28 days. HISTORY OF PRESENT ILLNESS/HOSPITAL COURSE: The patient is a 29-year-old female who presented for constant vaginal bleeding since March without improvement. She has a history of significant bleeding requiring transfusion due to uterine fibroids, noting she is soaking through nighttime pads every 2 hours with multiple blood clots. She would like a hysterectomy but is uninsured, so she is attempting medical management with OCPs. She does endorse weakness, nausea, dizziness, palpitations, and cramping abdominal pain. Ultrasound on admission which showed a limited exam and uterine fibroids. H and H on admission were 5.5/17.2, so the patient received 2 units of packed red blood cells in addition to morphine and Zofran. The patient also received TXA scheduled TID which decreased blood down to 1-2 pads per day throughout stay. Repeat H and H on day 2 was 6.9/20.8 and the patient received 1 more unit of blood. Repeat on day 3 was 8/23.3. The patient was stable, no longer symptomatic, no longer bleeding at that time. The patient was discharged home with TXA 5 days t.i.d. for her to take at the start of bleeding in her period, lasting 2 months. Patient was counseled on smoking cessation. She was also sent home with ferrous sulfate 325 mg b.i.d., folic acid, ibuprofen, and vitamin B12. Also, arrangements were made with our clinic to schedule her for a Mirena placement. DISPOSITION: Stable. DISCHARGE INSTRUCTIONS: Location: Home Diet: Regular. Activity: Ad effie. Followup: Follow up with your primary care physician in the next 7 days. Job ID: [id number] MTDD
== END 2019-12-02 11:11 | disposition home or self-care (01) ==
LOC: ERS 15:16 → 3SE 22:02
PROVIDERS: ADMIT Family Medicine; ATTEND Family Medicine
DX: D62 Acute posthemorrhagic anemia (principal); D25.9 Leiomyoma of uterus, unspecified; F17.210 Nicotine dependence, cigarettes, uncomplicated; F31.9 Bipolar disorder, unspecified; F41.9 Anxiety disorder, unspecified; Z79.899 Other long term (current) drug therapy; Z88.5 Allergy status to narcotic agent; Z20.828 Contact with and (suspected) exposure to other viral communicable diseases
CPT/HCPCS: 36415; 36430; 76856; 80048; 80053; 84703; 85025; 85610; 85730; 86850; 86900; 86901; 87635; 93976; 96365; 96374; 96375; G0378; J2270; J2405; J3490; J7050; P9016; U0003

== ENCOUNTER 2021-12-21 14:00 | Emergency (ER) | payer SELFPAY ==
[2021-12-21] MEDS ORDERED: Ondansetron PF 4 MG/2 ML Vial ONE (14:18)
== END 2021-12-21 15:33 | disposition home or self-care (01) ==
LOC: ERS 14:00
DX: R11.2 Nausea with vomiting, unspecified (principal)
CPT/HCPCS: 96374; J2405

== ENCOUNTER 2022-05-10 13:49 | Emergency (ER) | payer SELFPAY ==
[2022-05-10] MEDS ORDERED: Ondansetron PF 4 MG/2 ML Vial ONE ×2 (14:29→16:19)
[2022-05-10] MEDS ORDERED: Dicyclomine 20 MG/2 ML VIAL ONE (14:44)
[2022-05-10 14:50] LABS: #Basophils 0.1 thou/uL (0.0-0.2); #Lymphocytes 1.2 thou/uL (1.20-3.40); #Monocytes 0.4 thou/uL (0.11-0.59); #Neutrophils 8.5 thou/uL (1.40-6.50); %Basophils 0.7 % (0.0-1.0); %Eosinophils 0.1 % (0.0-10.0); %Lymphocytes 11.6 % (21.0-51.0); %Monocytes 3.7 % (0.0-10.0); Hemoglobin 14.6 g/dL (12.0-16.0); Mean Corpuscular HGB CONC 35.5 g/dL (32.0-36.0); Mean Corpuscular Hemoglobin 34.5 pg (27.0-31.0); Mean Platelet Volume 7.1 fL (7.4-10.4); Platelet Count 318 10x3/uL (130-400); RBC Distribution Width 11.4 % (11.5-14.5); Red Blood Cell (RBC) Count 4.24 mill/uL (4.20-5.40); White Blood Cell (WBC) Count 10.1 10x3/uL (4.8-10.8)
[2022-05-10 15:15] LABS: ALT (SGPT) 19 U/L (8-55); AST (SGOT) 29 U/L (5-34); Albumin 4.8 g/dL (3.5-5.0); Alkaline Phosphatase 69 U/L (40-110); Anion Gap 19 mmol/L (10-20); BUN (Urea Nitrogen) 7 mg/dL (7.0-18.7); Bilirubin, Total 0.6 mg/dL (0.2-1.2); Calc. Creatinine Clearance 0 mL/min (70-130); Calcium 9.9 mg/dL (7.8-10.44); Carbon Dioxide 21 mmol/L (22-29); Chloride 106 mmol/L (98-107); Estimated GFR 95; Globulin 3.3 g/dL (2.4-3.5); Glucose 113 mg/dL (70-105); Lipase 11 U/L (8-78); Potassium 3.6 mmol/L (3.5-5.1); Protein, Total 8.1 g/dL (6.0-8.3); Sodium 142 mmol/L (136-145)
[2022-05-10 15:16] LABS: BHCG - Serum Negative (NEGATIVE); Pregs Control Background? CLEAR/WHITE (CLR/WHITE); Pregs Control Bar Appear? YES (CONTROL BAR)
[2022-05-10] MEDS ORDERED: Promethazine HCl 12.5 MG in Sodium Chloride 0.9% 50 ML IVPB SCH (18:15)
== END 2022-05-10 19:52 | disposition home or self-care (01) ==
LOC: ERS 13:49
DX: R11.2 Nausea with vomiting, unspecified (principal)
CPT/HCPCS: 36415; 80053; 83690; 84703; 85025; 96361; 96372; 96374; 96375; 96376; J2405; J2550

== ENCOUNTER 2022-05-12 12:09 | Emergency (ER) | payer SELFPAY ==
[~2022-05-12 12:09] MED LIST: Iopamidol 370 76% 100 ML VIAL ONE
[2022-05-12] MEDS ORDERED: diphenhydrAMINE 50 MG/ML VIAL ONE (12:49)
[2022-05-12] MEDS ORDERED: Metoclopramide HCl 10 MG/2 ML VIAL ONE (12:49)
[2022-05-12] MEDS ORDERED: Haloperidol Lactate 5 MG/ML VIAL ONE (12:49)
[2022-05-12 12:54] LABS: #Basophils 0.1 thou/uL (0.0-0.2); #Lymphocytes 1.5 thou/uL (1.20-3.40); #Monocytes 0.7 thou/uL (0.11-0.59); #Neutrophils 4.8 thou/uL (1.40-6.50); %Basophils 1.3 % (0.0-1.0); %Eosinophils 0.3 % (0.0-10.0); %Lymphocytes 21.3 % (21.0-51.0); %Monocytes 9.5 % (0.0-10.0); %Neutrophils 67.7 % (42.0-75.0); Hemoglobin 15.4 g/dL (12.0-16.0); Mean Corpuscular HGB CONC 35.9 g/dL (32.0-36.0); Mean Corpuscular Hemoglobin 35.3 pg (27.0-31.0); Mean Corpuscular Volume 98.2 fl (78.0-98.0); Mean Platelet Volume 7.2 fL (7.4-10.4); Platelet Count 345 10x3/uL (130-400); RBC Distribution Width 11.4 % (11.5-14.5); Red Blood Cell (RBC) Count 4.37 mill/uL (4.20-5.40); White Blood Cell (WBC) Count 7.1 10x3/uL (4.8-10.8)
[2022-05-12 13:23] LABS: BHCG - Serum Negative (NEGATIVE); Pregs Control Background? CLEAR/WHITE (CLR/WHITE); Pregs Control Bar Appear? YES (CONTROL BAR)
[2022-05-12 13:53] LABS: ALT (SGPT) 17 U/L (8-55); AST (SGOT) 27 U/L (5-34); Albumin 4.6 g/dL (3.5-5.0); Alkaline Phosphatase 66 U/L (40-110); Anion Gap 18 mmol/L (10-20); BUN (Urea Nitrogen) 11 mg/dL (7.0-18.7); Bilirubin, Total 1.2 mg/dL (0.2-1.2); Calc. Creatinine Clearance 0 mL/min (70-130); Carbon Dioxide 20 mmol/L (22-29); Chloride 103 mmol/L (98-107); Estimated GFR 84; Globulin 3.5 g/dL (2.4-3.5); Glucose 116 mg/dL (70-105); Lipase 19 U/L (8-78); Potassium 3.2 mmol/L (3.5-5.1); Protein, Total 8.1 g/dL (6.0-8.3); Sodium 138 mmol/L (136-145)
[2022-05-12 14:45] LABS: Bilirubin Negative (Negative); Blood, Urine Negative (Negative); Clarity Clear (Clear); Glucose, Urine (Dipstick) Normal (Negative); Ketone, Urine 60 mg/dL (Negative); Leukocyte Negative Leu/uL (Negative); Nitrite Negative (Negative); Protein, Urine (Dipstick) 10 mg/dL (Neg-Trace); Urobilinogen Normal mg/dL (Less than 2); pH, Urine 6.5 (5.0-9.0)
[2022-05-12 14:46] LABS: Specific Gravity, Urine 1.055 (1.002-1.036)
[2022-05-12 14:53] LABS: Amphetamine Not Detected (NotDetected); Barbiturates Screen Not Detected (NotDetected); Benzodiazepine Screen Not Detected (NotDetected); Cocaine Metabolite Screen Not Detected (NotDetected); Methadone Not Detected (NotDetected); Methamphetamine Not Detected (NotDetected); Opiate Screen Not Detected (NotDetected); Oxycodone Screen Not Detected (NotDetected); Phencyclidine (PCP) Not Detected (NotDetected); THC/Cannabinoid Screen Detected (NotDetected); Tricyclic Screen Not Detected (NotDetected)
== END 2022-05-12 15:10 | disposition home or self-care (01) ==
LOC: ERS 12:09
DX: R11.10 Vomiting, unspecified (principal)
CPT/HCPCS: 74177; 80053; 80306; 81003; 83690; 84703; 85025; 96365; 96375; J1200; J1630; J2765; Q9967

== ENCOUNTER 2022-10-28 08:25 | Emergency (ER) | payer OTHER, SELFPAY ==
[2022-10-28] MEDS ORDERED: Ketorolac Tromethamine 30 MG/ML VIAL ONE (09:28)
== END 2022-10-28 09:54 | disposition home or self-care (01) ==
LOC: ERS 08:25
DX: S92.354A Nondisplaced fracture of fifth metatarsal bone, right foot, initial encounter for closed fracture (principal); W54.1XXA Struck by dog, initial encounter
CPT/HCPCS: 29515; 96372; J1885